=== PATIENT | male | born 1980 | race Hispanic/Latino ===

== ENCOUNTER → 2017-05-02 | Outpatient (CLI) | payer BC ==
--- NOTE | 2017-05-02 13:14 | Diagnostic Imaging Report ---
PROCEDURE: L-SPINE COMPLETE, 5 views including bilateral obliques COMPARISON: None. INDICATIONS: LOWER BACK PAIN FINDINGS: The lumbar spine is in anatomic alignment without evidence of fracture, spondylolisthesis, or spondylolysis. Vertebral body heights and disc spaces are maintained. The paraspinal soft tissues are normal. CONCLUSION: Normal lumbar spine. Dictated by: Gabriele Stack M.D. on 05/02/2017 at 13:14 Electronically approved by: Gabriele Stack M.D. on 05/02/2017 at 13:14
== END ==
LOC: RAD 11:38
PROVIDERS: ATTEND Family Medicine
DX: M54.5 Low back pain (principal)
CPT/HCPCS: 72110

== ENCOUNTER → 2017-05-05 | Outpatient (CLI) | payer OTHER ==
--- NOTE | 2017-05-06 15:58 | Diagnostic Imaging Report ---
History: Bilateral leg pain Comparison studies: None Technique: Sagittal, coronal and axial T2 , sagittal T1 and IR, axial spin density oblique. Intravenous contrast: None Findings: Number of lumbar vertebral bodies:5 Alignment: Normal lordosis.No scoliosis. Soft tissues: No T2 hyperintense inflammatory changes. Paraspinal muscles: No signal abnormalities. No atrophy. Lower thoracic cord:Normal in signal and morphology. The tip of the conus is at T12-L1. Cauda equina: No masses. No arachnoiditis. Vertebrae: Normal in height and signal intensity. No compression fractures, infection or neoplasm. Degenerative changes: L1-L2: No abnormalities. L2-L3: No abnormalities. L3-L4: No abnormalities. L4-L5: Trace of fluid at the bilateral facet joints without significant hypertrophic changes. Patent canal and foramina. L5-S1: Mild disc degeneration with loss of T2 signal. Mild diffuse disc bulge with superimposed small central disc protrusion results in no significant canal stenosis or foraminal narrowing. Additional findings: None IMPRESSION: Mild disc degeneration at the lumbosacral junction with patent canal and foramina. Mild synovitis changes at L4-L5 bilaterally and L5-S1 on the left. No significant facet hypertrophy. Signed by: DR Kris Mak M.D. on 05/06/2017 3:51 PM
== END ==
LOC: MRI 16:20
PROVIDERS: ATTEND Family Medicine
DX: M54.16 Radiculopathy, lumbar region (principal); M51.36 Other intervertebral disc degeneration, lumbar region
CPT/HCPCS: 72148